=== PATIENT | male | born 1980 | race Caucasian/White ===

== ENCOUNTER 2021-01-11 17:56 | Outpatient (REF) | payer BC, SELFPAY ==
[2021-01-11 13:22] LABS: Calculated LDL 86 mg/dL (<100); Cholesterol 165 mg/dL (<200); HDL Cholesterol 65 mg/dL (40-60); Triglyceride 72 mg/dL (<150)
== END 2021-01-11 17:57 | disposition home or self-care (01) ==
LOC: NCHCN 17:56
PROVIDERS: PCP Nurse Practitioner Family; Visit Provider Nurse Practitioner Family
DX: Z00.00 Encounter for general adult medical examination without abnormal findings (principal); Z13.220 Encounter for screening for lipoid disorders
CPT/HCPCS: 80061

== ENCOUNTER 2022-07-13 08:30 | Outpatient (CLI) | payer BC, SELFPAY ==
--- NOTE | 2022-07-13 08:31 | DI.RAD_ITS ---
Exam(s) XR SHOULDER RT COMPLETE 2+V EXAM: XR SHOULDER RT COMPLETE 2+V CLINICAL HISTORY: right shoulder pain TECHNIQUE: COMPARISON: No exams were available for comparison FINDINGS: Two views were obtained. There appears to be mild narrowing of the cartilaginous joint space of karen ohumeral joint. Minimal roughening of the margins of the articular surface of the glenoid noted. No other bony or soft tissue abnormality seen. IMPRESSION: RADIATION DOSE DELIVERED: Total DLP
== END 2022-07-13 08:31 | disposition home or self-care (01) ==
PROVIDERS: PCP Nurse Practitioner Family; Referring Provider Nurse Practitioner Family; Visit Provider Student in an Organized Health Care Education/Training Program
DX: M25.511 Pain in right shoulder (principal); M25.811 Other specified joint disorders, right shoulder
CPT/HCPCS: 73030

== ENCOUNTER 2022-08-04 01:08 | Outpatient (CLI) | payer BC, SELFPAY ==
--- NOTE | 2022-08-04 06:45 | DI.MRI_ITS ---
Exam(s) MR UPPER JOINT RT WO EXAM: MR UPPER JOINT RT WO CLINICAL HISTORY: R SHOULDER PAIN,sprain rt ac joint, [id number] TECHNIQUE: Multiplanar multisequence MRI of the shoulder was performed. COMPARISON: CR XR SHOULDER RT COMPLETE 2+V from 07/13/2022 FINDINGS: MARROW:There is no evidence of fracture, Hill-Sachs deformity, nor ominous osseous lesions. ROTATOR CUFF MECHANISM: AC JOINT/ACROMIUM: No significant degenerative changes in the AC joint. Mildly downsloping acromion. No undersurface osseous folk.. There is no evidence of os acromiale. Supraspinatus: Mild increased signal. No significant tear evident. No atrophy. There is, however, small amount of fluid in the subacromial bursa. Infraspinatus: Intact. No evidence of tear nor muscle atrophy. Teres Minor: Intact. No evidence of tear nor muscle atrophy. Subscapularis/anterior cuff: Intact. No abnormal signal at the level of the multipennate insertional fibers. No significant tear nor atrophy. BICEPS TENDON: Normally position in the intertubercular groove. No evidence of tear. Mild amount of increased fluid in the tendon sheath. No loose body at this level. LABRUM: No obvious labral tear identified. Mild fluid signal seen between the superior labrum and os seous glenoid posterior to the biceps tendon insertion. Difficult to determine subtle SLAP tear vers us sublabral recess. There is no fraying of the superior labrum. The posterior labrum appears intac t. Anterior labrum appears intact. Inferior labrum intact. Inferior glenohumeral ligament intact. No evidence of paralabral cyst. LABROLIGAMENTOUS/CAPSULAR COMPLEX: There is no evidence of avulsion of the anterior-inferior labrum, capsule, inferior glenohumeral liga ment complex nor disruption of the scapular periosteum to suggest the presence of a Bankart lesion. Also no evidence of obvious Bankart lesion variants. GLENOHUMERAL JOINT: No joint effusion nor obvious loose intra-articular bodies. No chondral defects. No osteophytes. No degenerative subarticular cysts. No evidence of capsular tear. The inferior gle nohumeral ligament is intact. QUADRILATERAL SPACE: No evidence of mass in the region of the axillary nerve and dorsal circumflex hu meral vessels. Visualized triceps muscle at this level appears unremarkable. IMPRESSION: 1. There is sliver of fluid in the subacromial bursa but without evidence of full-thickness tear of t hese rotator cuff mechanism. Probably represents an element of bursitis. There is no prominent tend initis signal. No atrophy. 2. Superior labral finding with which is either SLAP tear versus sublabral recess. No biceps tendon tear. No evidence of paralabral cyst. 3. No evidence of glenohumeral joint effusion, obvious degenerative changes nor loose intra-articular bodies. No osteophytes. Small degenerative cysts noted in the posterolateral aspect of the humeral head. DATA REPOSITORY:
== END 2022-08-04 01:28 ==
LOC: DI 01:08
PROVIDERS: PCP Nurse Practitioner Family; Visit Provider Student in an Organized Health Care Education/Training Program
DX: M25.511 Pain in right shoulder; R93.7 Abnormal findings on diagnostic imaging of other parts of musculoskeletal system
CPT/HCPCS: 73221